=== PATIENT | male | born 1945 | race Caucasian/White ===

== ENCOUNTER → 2016-09-23 | Outpatient (CLI) | payer MEDICARE, OTHER ==
[~2016-09-23] MED LIST: ASPI-496 PO; CELEBREX PO; LEVO100T PO; MERC50TA17 PO; MESA1.2T PO; MULT-717 PO
[2016-09-23 13:39] LABS: BLOOD UREA NITROGEN 16 mg/dL (7-18)
== END | disposition home or self-care (01) ==
LOC: STAR 12:08
PROVIDERS: ATTEND Orthopaedic Surgery
DX: Z01.818 Encounter for other preprocedural examination (principal); R94.31 Abnormal electrocardiogram [ECG] [EKG]; M17.12 Unilateral primary osteoarthritis, left knee
CPT/HCPCS: 36415; 80048; 81003; 85025; 87081; 93005

== ENCOUNTER 2016-10-03 05:47 | Inpatient (IN) | payer MEDICARE, OTHER ==
[~2016-10-03] VITALS: Ht 175.3 cm; Wt 75.3 kg
[2016-10-03] MEDS ORDERED: LACTATED RINGERS 1,000 ML IV SCH (06:21)
[2016-10-03 06:22] VITALS: BP 111/79
[2016-10-03] MEDS ORDERED: GABA300C10 PO (06:31)
[2016-10-03] MEDS ORDERED: FENTANYL PF 250 MCG/5ML ONE (06:38)
[2016-10-03] MEDS ORDERED: MIDAZOLAM 1 MG/ML, 2ML ONE (06:38)
[2016-10-03] MEDS ORDERED: TRANEXAMIC ACID 100 MG/ML, 10ML ONE (06:42)
[2016-10-03] MEDS ORDERED: VANCOMYCIN 1,000 MG ONE (06:43)
[2016-10-03] MEDS ORDERED: KETOROLAC 60 MG/2 ML ONE (06:44)
[2016-10-03] MEDS ORDERED: SODIUM CHLORIDE 0.9% 50 ML ONE (06:44)
[2016-10-03] MEDS ORDERED: EPINEPHRINE 1 MG/ML, 1ML ONE (06:44)
[2016-10-03] MEDS ORDERED: ROPIvacaine/PF 0.2%, 20 ML ONE (06:44)
[2016-10-03] MEDS ORDERED: ROPIvacaine/PF 0.5%, 20 ML ONE (06:50)
[2016-10-03] MEDS ORDERED: DEXAMETHASONE 4 MG/ML, 1ML ONE (07:16)
[2016-10-03] MEDS ORDERED: ONDANSETRON 2MG/ML, 2ML ONE (07:16)
[2016-10-03] MEDS ORDERED: CEFAZOLIN 1,000 MG ONE (07:16)
[2016-10-03] MEDS ORDERED: PROPOFOL 10 MG/ML, 20ML ONE (07:16)
[2016-10-03] MEDS ORDERED: PROMETHAZINE 25 MG/ML, 1ML IV PRN (08:00)
[2016-10-03] MEDS ORDERED: EPHEDRINE 50 MG/ML, 1ML IVPush PRN (08:00)
[2016-10-03] MEDS ORDERED: METOPROLOL 1 MG/ML, 5ML IV PRN (08:00)
[2016-10-03] MEDS ORDERED: MIDAZOLAM 1 MG/ML, 2ML IV PRN (08:00)
[2016-10-03] MEDS ORDERED: hydrALAzine 20 MG/ML, 1ML IV PRN (08:00)
[2016-10-03] MEDS ORDERED: ACETAMINOPHEN 325 MG TABLET PO PRN (08:00)
[2016-10-03] MEDS ORDERED: MEPERIDINE/PF 25MG/0.5ML IVPush PRN (08:00)
[2016-10-03] MEDS ORDERED: OXYcodone 5 MG/5 ML ORAL.SOL UDC PO PRN (08:00)
[2016-10-03] MEDS ORDERED: LABETALOL 5MG/ML, 20ML IV PRN (08:00)
[2016-10-03] MEDS ORDERED: ONDANSETRON 2MG/ML, 2ML IVPush PRN (08:00)
[2016-10-03] MEDS ORDERED: HYDROcodone/APAP 7.5-325MG/15ML UDC PO PRN (08:00)
[2016-10-03] MEDS ORDERED: FENTANYL PF 100 MCG/2ML IV PRN (08:00)
[2016-10-03] MEDS ORDERED: ALBUTEROL SULFATE 2.5 MG/3 ML NPPB PRN (08:00)
[2016-10-03] MEDS ORDERED: HYDROmorphone 1 MG/ML, 1ML IV PRN ×2 (08:00→09:00)
[2016-10-03] MEDS: D5%-0.45% NACL 1,000 ML IV SCH ×2 (08:43→16:43)
[2016-10-03] MEDS ORDERED: ZOLPIDEM 5MG TABLET PO PRN (09:00)
[2016-10-03] MEDS ORDERED: PROMETHAZINE 25 MG/ML, 1ML IM PRN (09:00)
[2016-10-03] MEDS ORDERED: PROMETHAZINE 12.5 MG SUPP PR PRN (09:00)
[2016-10-03] MEDS ORDERED: HYDROcodone/APAP 10/325 MG TABLET PO PRN (09:00)
[2016-10-03] MEDS ORDERED: SCOPOLAMINE PATCH, 1.5MG PATCH.TD72 TD SCH (09:00)
[2016-10-03] MEDS ORDERED: ONDANSETRON 2MG/ML, 2ML IV PRN (09:00)
[2016-10-03] MEDS ORDERED: SENNA/DOCUSATE TABLET PO PRN (09:00)
[2016-10-03] MEDS ORDERED: DIAZEPAM 5 MG TABLET PO PRN (09:00)
[2016-10-03] MEDS ORDERED: DIPHENHYDRAMINE 50 MG CAPSULE PO PRN (09:00)
[2016-10-03] MEDS ORDERED: BISACODYL 10 MG SUPP PR PRN (09:00)
[2016-10-03] MEDS ORDERED: ALUMINUM/MAG/SIMETHICONE 30 ML UDC PO PRN (09:00)
[2016-10-03] MEDS ORDERED: ONDANSETRON 4 MG TABLET PO PRN (09:00)
[2016-10-03] MEDS ORDERED: MAGNESIUM HYDROXIDE 8%, 30ML UDC PO PRN (09:00)
[2016-10-03] MEDS ORDERED: ACETAMINOPHEN 650 MG/20.3 ML UDC PO PRN (09:00)
[2016-10-03] MEDS ORDERED: TRANEXAMIC ACID 1,000 MG in SODIUM CHLORIDE 0.9% 100 ML IVPB ONE (09:15)
[2016-10-03] MEDS: MULTIVITAMINS/MINERALS TABLET PO SCH (12:25)
[2016-10-03] MEDS: DOCUSATE 100 MG CAPSULE PO SCH ×2 (12:25→22:54)
[2016-10-03] MEDS: HYDROcodone/APAP 10/325 MG TABLET PO SCH ×3 (12:25→19:51)
[2016-10-03] MEDS: PREGABALIN 75 MG CAPSULE PO SCH ×2 (12:25→22:54)
[2016-10-03] MEDS: TAMSULOSIN 0.4 MG CAP.ER.24H PO SCH (12:27)
[2016-10-03 14:00] VITALS: BP 107/69
[2016-10-03] MEDS: CEFAZOLIN PMX 2GM/50ML 50 ML IVPB SCH (16:22)
[2016-10-03] MEDS: MESALAMINE 1.2 GM TABLET.DR PO SCH (21:00)
[2016-10-03 21:38] VITALS: BP 106/70
[2016-10-04] MEDS: CEFAZOLIN PMX 2GM/50ML 50 ML IVPB SCH (00:02)
[2016-10-04] MEDS: HYDROcodone/APAP 10/325 MG TABLET PO SCH ×3 (00:02→04:40)
[2016-10-04] MEDS: D5%-0.45% NACL 1,000 ML IV SCH ×2 (00:43→08:43)
[2016-10-04 02:13] VITALS: BP 105/65
[2016-10-04] MEDS ORDERED: RIVAROXABAN 10 MG TABLET PO SCH (06:00)
[2016-10-04] MEDS ORDERED: LEVOTHYROXINE 100 MCG TABLET PO SCH (06:00)
[2016-10-04] MEDS ORDERED: DEXAMETHASONE 4 MG/ML, 1ML IVPush SCH (06:00)
[2016-10-04] MEDS ORDERED: LEVOTHYROXINE 88 MCG TABLET PO SCH (06:00)
[2016-10-04 07:37] VITALS: BP 105/65
[2016-10-04] MEDS: TAMSULOSIN 0.4 MG CAP.ER.24H PO SCH (08:52)
[2016-10-04] MEDS: DOCUSATE 100 MG CAPSULE PO SCH (08:52)
[2016-10-04] MEDS: PREGABALIN 75 MG CAPSULE PO SCH (08:53)
[2016-10-04] MEDS: MULTIVITAMINS/MINERALS TABLET PO SCH (08:53)
[2016-10-04] MEDS: MESALAMINE 1.2 GM TABLET.DR PO SCH (08:53)
[2016-10-04] MEDS ORDERED: KETOROLAC 30 MG/1 ML IV SCH (09:00)
[2016-10-04 11:55] VITALS: BP 114/71
== END 2016-10-04 12:19 | disposition home or self-care (01) | DRG 470 ==
LOC: ORIP 05:47 → 4NOR 10:34
PROVIDERS: ADMIT Orthopaedic Surgery; ATTEND Orthopaedic Surgery
PROC: 0SRD0J9 Replacement of Left Knee Joint with Synthetic Substitute, Cemented, Open Approach (ICD-10-PCS; principal; 2016-10-03 07:30)
DX: M17.12 Unilateral primary osteoarthritis, left knee (principal); Z88.0 Allergy status to penicillin; Z88.2 Allergy status to sulfonamides; Z88.5 Allergy status to narcotic agent
CPT/HCPCS: 36415; 85014; 85018; C1713; J0171; J0690; J1100; J1885; J2250; J2405; J2704; J2795; J3010; J3370; C1776; J7120

== ENCOUNTER → 2016-11-17 | Outpatient (CLI) | payer MEDICARE, OTHER ==
[~2016-11-17] MED LIST changes: +GABA300C10 PO
== END | disposition home or self-care (01) ==
LOC: CFH 11:36
PROVIDERS: ATTEND Family Medicine
DX: J44.9 Chronic obstructive pulmonary disease, unspecified (principal); Z95.2 Presence of prosthetic heart valve
CPT/HCPCS: 71020

== ENCOUNTER 2018-09-28 08:11 | Outpatient (CLI) | payer MEDICARE, OTHER | END 2018-09-28 23:59 | disposition home or self-care (01) | LOC: CVU 08:11 | PROVIDERS: ATTEND Internal Medicine Cardiovascular Disease | DX: I34.0 Nonrheumatic mitral (valve) insufficiency (principal); I48.91 Unspecified atrial fibrillation; Z95.2 Presence of prosthetic heart valve | CPT/HCPCS: 0399T; 93306 ==

== ENCOUNTER 2018-10-30 10:01 | Day surgery (SDC) | payer MEDICARE, OTHER ==
[~2018-10-30] VITALS: Ht 175.3 cm; Wt 68.2 kg
== END 2018-10-30 15:32 | disposition home or self-care (01) ==
LOC: CACL 10:01
PROVIDERS: ATTEND Internal Medicine Cardiovascular Disease
DX: I25.10 Atherosclerotic heart disease of native coronary artery without angina pectoris (principal); I25.83 Coronary atherosclerosis due to lipid rich plaque; I48.91 Unspecified atrial fibrillation; Z79.890 Hormone replacement therapy; Z79.82 Long term (current) use of aspirin; Z79.899 Other long term (current) drug therapy; Z88.0 Allergy status to penicillin; Z88.2 Allergy status to sulfonamides; Z88.5 Allergy status to narcotic agent; Z95.2 Presence of prosthetic heart valve; Z82.49 Family history of ischemic heart disease and other diseases of the circulatory system
CPT/HCPCS: 36415; 80048; 85025; 93454; 99156; C1769; C1894; J1644; J2250; J3010; Q9967

== ENCOUNTER 2018-11-08 08:51 | Outpatient (CLI) | payer MEDICARE, OTHER ==
[~2018-11-08 08:51] MED LIST changes: +LOPE-114 PO
[2018-11-08] MEDS ORDERED: VISIPAQUE 320 MG/ML, 150ML BOTTLE ONE (11:39)
[2018-11-21] MEDS ORDERED: CLOP75TA PO (12:11)
== END 2018-11-08 23:59 | disposition home or self-care (01) ==
LOC: CVU 08:51 → RAD 23:59
PROVIDERS: ATTEND Internal Medicine Cardiovascular Disease
DX: I65.23 Occlusion and stenosis of bilateral carotid arteries (principal); M16.12 Unilateral primary osteoarthritis, left hip; M47.816 Spondylosis without myelopathy or radiculopathy, lumbar region; I77.810 Thoracic aortic ectasia; R06.02 Shortness of breath; Z88.1 Allergy status to other antibiotic agents; Z95.0 Presence of cardiac pacemaker; Z88.5 Allergy status to narcotic agent; Z88.2 Allergy status to sulfonamides
CPT/HCPCS: 71275; 74174; 93880; 94010; 94726; 94729; Q9967

== ENCOUNTER → 2019-07-26 | Outpatient (CLI) | payer MEDICARE, OTHER ==
[~2019-07-26] MED LIST changes: +CLOP75TA PO
== END | disposition home or self-care (01) ==
LOC: CVU 10:00
PROVIDERS: ATTEND Physician Assistant Medical
DX: I34.0 Nonrheumatic mitral (valve) insufficiency (principal); I48.91 Unspecified atrial fibrillation; I71.2 Thoracic aortic aneurysm, without rupture; Z95.2 Presence of prosthetic heart valve; Z79.01 Long term (current) use of anticoagulants
CPT/HCPCS: 93306

== ENCOUNTER → 2019-12-17 | Outpatient (CLI) | payer MEDICARE, OTHER | END | disposition home or self-care (01) | LOC: CVU 14:00 | PROVIDERS: ATTEND Internal Medicine Cardiovascular Disease | DX: I08.1 Rheumatic disorders of both mitral and tricuspid valves (principal); Z95.2 Presence of prosthetic heart valve | CPT/HCPCS: 93306 ==

== ENCOUNTER → 2019-12-18 | Outpatient (CLI) | payer MEDICARE, OTHER | END | disposition home or self-care (01) | LOC: CFH 12:20 | PROVIDERS: ATTEND Psychiatry & Neurology Neurology | DX: I65.23 Occlusion and stenosis of bilateral carotid arteries (principal) | CPT/HCPCS: 93880 ==

== ENCOUNTER 2020-08-13 10:11 | Observation (INO) | payer MEDICARE, OTHER ==
[~2020-08-13] VITALS: Ht 177.8 cm; Wt 64.8 kg
--- NOTE | 2020-08-13 10:35 | NUR ---
PT STATES HE HAS HAD WEAKNESS, DIZZINESS, AND SLURRED SPEECH IN THE PAST WEEK. NEURO INTACT. NO DEFICITES FROM NEURO EXAM. WAS SENT FROM PCP FOR WORK UP
--- NOTE | 2020-08-13 10:36 | NUR ---
CARD MONITOR IN PLACE. SEEN BY MERE CALL
[2020-08-13 11:07] LABS: BASOPHILS % (AUTO) 1 % (0-1); EOSINOPHILS % (AUTO) 4 % (1-7); LYMPHOCYTES % (AUTO) 24 % (22-44); MEAN CORPUSCULAR HEMOGLOBIN 31.5 pg (27.5-34.5); MEAN CORPUSCULAR HGB CONC 34.5 g/dL (33.2-36.2); MEAN PLATELET VOLUME 7.5 fL (7.4-10.4); MONOCYTES % (AUTO) 8 % (2-9); NEUTROPHILS % (AUTO) 63 % (42-75); PLATELET COUNT 125 x10^3/uL (130-400); RED BLOOD COUNT 4.96 x10^6/uL (4.38-5.82); RED CELL DISTRIBUTION WIDTH 14.7 % (9.4-14.8)
[2020-08-13 11:08] LABS: MD NO
[2020-08-13 11:13] LABS: INTERNATIONAL NORMALIZED RATIO 1.07 (0.93-1.1); PROTHROMBIN TIME 11.4 Seconds (9.6-11.5)
[2020-08-13 11:14] LABS: ALBUMIN 3.7 g/dL (3.4-5.0); ANION GAP 6 mmol/L (5-15); CALCIUM 8.4 mg/dL (8.5-10.1); CHLORIDE 112 mmol/L (98-107); CREATININE 1.02 mg/dL (0.7-1.3)
[2020-08-13 11:18] LABS: TROPONIN I < 0.015 ng/mL (0.000-0.045)
--- NOTE | 2020-08-13 12:35 | NUR ---
BREAKING RN. PATIENT UP FOR RECHECK AT THIS TIME Patient is resting comfortably in bed. Bed in lowest, rails engaged, call light on lap. Vital Signs within normal limits. WCTM.
[2020-08-13] MEDS ORDERED: ASPIRIN 325 MG TABLET PO STA (12:52)
[2020-08-13] MEDS ORDERED: ASPIRIN 325 MG TABLET ONE (12:58)
[2020-08-13] MEDS ORDERED: DONE5TAB7 PO (13:06)
[2020-08-13] MEDS ORDERED: BUDE3CAP6 PO (13:06)
[2020-08-13] MEDS ORDERED: APIX5TAB PO (13:06)
--- NOTE | 2020-08-13 13:06 | NUR ---
PATIENT SITTING UP IN [facility], AT BEDSIDE, CONNECTED TO MONITORS, VSS, NADN, MEDICATED PER eMAR, MED REC DONE, CALL LIGHT WITHIN REACH, NO FURTHER NEEDS AT THIS TIME. WAITING FOR ROOM ASSIGNMENT UPSTAIRS.
--- NOTE | 2020-08-13 13:14 | NUR ---
REPORT TO MARTHA
--- NOTE | 2020-08-13 13:24 | NUR ---
PATIENT TO IMAGING.
--- NOTE | 2020-08-13 14:16 | NUR ---
REPORT GIVEN TO [facility] FOR TRANSFER OF PATIENT CARE.
--- NOTE | 2020-08-13 14:16 | NUR ---
DR. INGRAM AT BEDSIDE FOR ADMISSION EVALUATION, WILL START IV.
--- NOTE | 2020-08-13 14:35 | NUR ---
PATIENT TRANSFERRED TO MEDICAL TELEMETRY IN STABLE CONDITION VIA GURNEY WITH INDUSTRIAL COOK. AT BEDSIDE. ALL PATIENT BELONGINGS TAKEN TO FLOOR WITH PATIENT.
[2020-08-13] MEDS ORDERED: ONDANSETRON 2MG/ML, 2ML IVPush PRN (15:00)
[2020-08-13] MEDS ORDERED: ONDANSETRON ODT 4 MG PO PRN (15:00)
[2020-08-13] MEDS ORDERED: LABETALOL 5MG/ML, 20ML IVPush PRN (15:00)
[2020-08-13 15:07] VITALS: BP 123/80
[2020-08-13] MEDS: ATORVASTATIN 40 MG TABLET PO SCH (21:00)
[2020-08-13] MEDS: APIXABAN 5 MG TABLET PO SCH (21:22)
[2020-08-13 21:42] VITALS: BP 114/84
[2020-08-14 02:36] VITALS: BP 113/80
[2020-08-14 05:12] LABS: BASOPHILS % (AUTO) 1 % (0-1); EOSINOPHILS % (AUTO) 4 % (1-7); LYMPHOCYTES % (AUTO) 30 % (22-44); MEAN CORPUSCULAR HEMOGLOBIN 31.4 pg (27.5-34.5); MEAN CORPUSCULAR HGB CONC 34.2 g/dL (33.2-36.2); MEAN PLATELET VOLUME 7.9 fL (7.4-10.4); MONOCYTES % (AUTO) 8 % (2-9); NEUTROPHILS % (AUTO) 58 % (42-75); PLATELET COUNT 122 x10^3/uL (130-400)
[2020-08-14 05:19] LABS: ANION GAP 7 mmol/L (5-15); CALCIUM 8.4 mg/dL (8.5-10.1); CHLORIDE 112 mmol/L (98-107); CREATININE 0.99 mg/dL (0.7-1.3)
[2020-08-14 05:22] LABS: CHOL/HDL RATIO 2.5; CHOLESTEROL, TOTAL 138 mg/dL (140-239); HDL CHOL % 41 % (26-37); HDL CHOLESTEROL (DIRECT) 56 mg/dL (40-60); LDL CHOLESTEROL,CALCULATED 70 mg/dL (54-169); LDL/HDL RATIO 1.3 (0.5-3.0); TRIGLYCERIDES 59 mg/dL (50-200); VLDL CHOLESTEROL 12 mg/dL (0-25)
[2020-08-14 05:56] LABS: MD SCAN
[2020-08-14] MEDS: LEVOTHYROXINE 88 MCG TABLET PO SCH (06:25)
[2020-08-14 06:39] VITALS: BP 106/78
[2020-08-14] MEDS: APIXABAN 5 MG TABLET PO SCH ×2 (08:38→21:17)
[2020-08-14] MEDS: MULTIVITAMIN 1 TABLET PO SCH (08:38)
[2020-08-14] MEDS: DONEPEZIL 5 MG TABLET PO SCH (08:38)
[2020-08-14] MEDS: BUDESONIDE 3 MG CAP DR.ER PO SCH (08:38)
[2020-08-14] MEDS ORDERED: OMNIPAQUE 350 MG/ML, 100ML BOTTLE ONE (09:15)
[2020-08-14] MEDS ORDERED: DILTIAZEM 30 MG TABLET PO SCH (09:30)
[2020-08-14] MEDS ORDERED: DIGOXIN 0.125 MG TABLET ONE (09:35)
[2020-08-14] MEDS: DIGOXIN 0.125 MG TABLET PO SCH (09:37)
[2020-08-14 16:16] VITALS: BP 127/83
[2020-08-14] MEDS: DILTIAZEM 60 MG CAP.ER.12H PO SCH (16:25)
[2020-08-14 19:52] VITALS: BP 113/76
[2020-08-14] MEDS: ATORVASTATIN 40 MG TABLET PO SCH (21:17)
[2020-08-15 01:36] VITALS: BP 101/70
[2020-08-15] MEDS ORDERED: ATOR40TA78 PO (06:55)
[2020-08-15] MEDS ORDERED: DILT60CA PO (06:55)
[2020-08-15] MEDS ORDERED: DIGO125T85 PO (06:55)
[2020-08-15 07:41] VITALS: BP 106/71
[2020-08-15] MEDS: BUDESONIDE 3 MG CAP DR.ER PO SCH (07:45)
[2020-08-15] MEDS: DIGOXIN 0.125 MG TABLET PO SCH (07:45)
[2020-08-15] MEDS: LEVOTHYROXINE 88 MCG TABLET PO SCH (07:46)
[2020-08-15] MEDS: APIXABAN 5 MG TABLET PO SCH (07:46)
[2020-08-15] MEDS: MULTIVITAMIN 1 TABLET PO SCH (07:46)
[2020-08-15] MEDS: DILTIAZEM 60 MG CAP.ER.12H PO SCH (07:46)
[2020-08-15] MEDS: DONEPEZIL 5 MG TABLET PO SCH (07:47)
== END 2020-08-15 11:38 | disposition home or self-care (01) ==
LOC: ED 10:37 → SUATTDRO 12:56 → 4EST 14:48 → INTOOBSV 14:48
PROVIDERS: ADMIT Family Medicine; ATTEND Hospitalist
DX: G45.9 Transient cerebral ischemic attack, unspecified (principal); I63.81 Other cerebral infarction due to occlusion or stenosis of small artery; I48.91 Unspecified atrial fibrillation; E03.9 Hypothyroidism, unspecified; F03.90 Unspecified dementia, unspecified severity, without behavioral disturbance, psychotic disturbance, mood disturbance, and anxiety; R47.1 Dysarthria and anarthria; R41.0 Disorientation, unspecified; G93.89 Other specified disorders of brain; F17.220 Nicotine dependence, chewing tobacco, uncomplicated; Z66 Do not resuscitate; Z95.2 Presence of prosthetic heart valve; Z88.0 Allergy status to penicillin; Z79.82 Long term (current) use of aspirin; Z79.899 Other long term (current) drug therapy; Z79.01 Long term (current) use of anticoagulants; Z86.73 Personal history of transient ischemic attack (TIA), and cerebral infarction without residual deficits
CPT/HCPCS: 36415; 70450; 70496; 70498; 70551; 71045; 80048; 80061; 82040; 83735; 84484; 85025; 85610; 85730; 92523; 93005; 93306; 97161; 97166; 99285; G0378; Q9967

== ENCOUNTER → 2020-10-28 | Outpatient (CLI) | payer MEDICARE, OTHER ==
[~2020-10-28] MED LIST changes: +APIX5TAB PO; +ATOR40TA78 PO; +BUDE3CAP6 PO; +DIGO125T85 PO; +DILT60CA PO; +DONE5TAB7 PO; +REGADENOSON 0.4 MG/5 ML SYRINGE ONE
== END | disposition home or self-care (01) ==
LOC: CFH 12:11
PROVIDERS: ATTEND Internal Medicine Cardiovascular Disease
DX: I48.91 Unspecified atrial fibrillation (principal); R07.89 Other chest pain; R42 Dizziness and giddiness
CPT/HCPCS: 78452; 93017; A9502; J2785